=== PATIENT | female | born 1960 | race Caucasian/White ===

== ENCOUNTER → 2020-06-19 16:08 | Outpatient (CLI) | payer BC, SELFPAY ==
--- NOTE | ~2020-06-19 | XR_ITS ---
EXAMINATION: XR chest 2V EXAM DATE: 06/19/2020 16:19 INDICATION: R06.02 - Shortness of breath. TECHNIQUE: Frontal and lateral projections of the chest obtained and reviewed. Comparison is made to prior examination from 07/05/2015. FINDINGS: The lungs are clear. There are no pleural effusions. The cardiomediastinal silhouette is within normal limits. There is no pneumothorax suspected. The bones and soft tissues are unremarkab le. Lower cervical fusion hardware. IMPRESSION: No acute cardiopulmonary findings. Reviewed, dictated and finalized at location A. [employer]
== END ==
PROVIDERS: PCP Family Medicine; Visit Provider Physician Assistant
DX: R06.02 Shortness of breath (principal)
CPT/HCPCS: 71046

== ENCOUNTER 2020-07-16 15:30 | Outpatient (RCR) | payer BC, SELFPAY ==
--- NOTE | 2020-04-20 15:24 | PTOPEVAL ---
PHYSICAL THERAPY EVALUATION AND PLAN OF CARE 04-20-2020 Thank you for referring Michelle Boyd to [facility].? She is scheduled to be seen for therapy? 2-3 x/week for 6 weeks. Please review, sign, date and return this plan of care [place]. I agree with and certify that the following plan of care is medically necessary. Referring Physician Date Attending Provider: Tono Lozano MD *PT Outpatient Evaluation Document 04/20/20 14:10 MEREDITH (Rec: 04/20/20 15:24 MEREDITH [id number]) Outpatient Past Medical History Past Medical History Source of Past Medical History Patient Neurological History Hx Neurological Disorders No Significant History Cardiovascular History Hx Cardiac Disorders No Significant History Respiratory History Hx Respiratory Disorders No Significant History Gastrointestinal History Hx Gastrointestinal Disorders No Significant History Genitourinary History Hx Genitourinary Disorders No Significant History Musculoskeletal History Hx Joint Replacement Yes: R THR 2016 Hx Spinal Surgery Yes: cervical fusion 2001 Hx Other Musculoskeletal Disorders Yes: B carpal tunnel surgery Endocrine History Hx Hypothyroidism Yes HEENT History Hx Other HEENT Disorders Yes: seasonal allergies Evaluation Information Problem Diagnosis s/p B breast reconstruction Onset January 05, 2020 Subjective Information no limitations in activity Query Text:As Reported By Patient/ from dr, per pt Family Prior Level of Function Activity Level (Last 3 Months) Occupation IT work--computer work Hand Dominance Right Activity of Daily Living Ability Independent Indoor/Home Mobility Independent Community Mobility Independent Stairs Ability Independent Functional Cognition (Planning, Shopping Independent , Taking Medications) Cooking Yes Cleaning Yes Laundry Yes Shopping Yes Driving Yes Comments Additional Prior Level of Function problems with reaching up with Comments arms; decreased overall endurance Pain Assessment Timing of Pain Assessment Timing of Pain Assessment Assessment Pain Scale Pain Scale Used Numeric (1 - 10) Self Report Pain Assessment Bilateral Chest Reported Pain Level 0 Pain Description Tightness Pain Frequency Acute Other Pain Description R and L upper trunk with shoulder motions Lowest Pain Intensity 0 Greatest Pain Intensity 3 Pain Score Pain Score
--- NOTE | 2020-05-17 13:34 | PCPTNOTE ---
Patient cancelled apt this date due to waiting for covid test result.
--- NOTE | 2020-05-28 15:40 | PCPTNOTE ---
pt canceled due to still under COVID quarantine and recovering from COVID;
--- NOTE | 2020-06-14 16:04 | PTOPEVAL ---
PHYSICAL THERAPY RE-EVALUATION AND UPDATED PLAN OF CARE 06-14-2020 Refer to the clinical summary below for her improvements since initial evaluation. Therapy is to continue treatment, 2x/week for 6 weeks. Thank you for referring Michelle Boyd to [facility].? Please review, sign, date and return this plan of care [facility]. I agree with and certify that the following plan of care is medically necessary. Referring Physician Date Attending Provider: Tono Lozano MD *PT Outpatient Re-Evaluation Document 06/14/20 15:10 MEREDITH (Rec: 06/14/20 16:03 MEREDITH [id number]) Subjective Information Michelle reports: feeling Query Text:As Reported By Patient/ better but still recovering Family from COVID; doing better- not feel as swollen; doing scar massage daily; still have soreness but less; wearing swell pad and bra; more flexibility with shoulders/ arms; did 20 min on ecclitical at slow pace; want to continue therapy; saw surgeon- was pleased with her progress; plan to do reconstructive surgery in about 6 months; Pain Assessment Timing of Pain Assessment Timing of Pain Assessment Assessment Pain Scale Pain Scale Used Numeric (1 - 10) Self Report Pain Assessment Bilateral Chest Reported Pain Level 2 Radicular Pain Location no shoulder pain; tender and sore over R superior breast necrotic tissue Pain Frequency Chronic Other Pain Description L chest wall tender and sore- muscle under anterior chest wall Lowest Pain Intensity 2 Greatest Pain Intensity 4 Pain Aggravating Factors Exercise/Activity Pain Score Pain Score 2: Self Report Interventions Used Interventions Used By Clinicians Education Upper Extremity Range of Motion General Upper Extremity Range of Motion Gross Upper Extremity Range of Motion standing R shoulder IR- reach Comments behind back-equal to L, fingers to lower scapula; flexion 165'; abduct 165'; ER- reach behind head- elbow equal R/L some pull in abdomen standing trunk: extension- tight over abdomen; rotation to R and L-reports pull on R
--- NOTE | 2020-07-10 16:37 | PTOPEVAL ---
PHYSICAL THERAPY REEVALUATION AND UPDATED PLAN OF CARE 07-10-2020 Refer to the clinical summary below for a comparison to her last reevaluation. PT is to continue 2x/week for 6 weeks; she will be out of town for one week of this time frame. Thank you for referring Michelle Boyd to [facility].? Please review, sign, date and return this plan of care [facility]. I agree with and certify that the following plan of care is medically necessary. Referring Physician Date Attending Provider: Tono Lozano MD Document 07/10/20 15:30 MEREDITH (Rec: 07/10/20 16:37 MEREDITH [id number]) Assessment Status Re-evaluation Subjective Information Michelle reports: have improved Query Text:As Reported By Patient/ with abdominal scar is less; Family endurance has improved with walking; is doing all of her usual home and work tasks, is carrying groceries and cleaning, cooking; want to continue therapy-- it is helping; at home, is doing her massage and exercises; has random swelling over R arm pit and below abdominal incision- - does not know what causes it ; just purchased compression abdominal garment, off the shelf at [facility] and it is comfortable, has worn for 3 days; continues to wear sports type compression bra that is comfortable for her, but sometimes slips up and digs into lower breast incisions; Pain Assessment Timing of Pain Assessment Timing of Pain Assessment Assessment Pain Scale Pain Scale Used Numeric (1 - 10) Self Report Pain Assessment Bilateral Chest Reported Pain Level 3 Pain Frequency Chronic Other Pain Description scar pain- tightness over abdomen, upper trunk, Lowest Pain Intensity 3 Greatest Pain Intensity 5 Pain Aggravating Factors Weight Bearing/Standing Other Pain Aggravating Factors standing more with cooking, holidays; Pain Score Pain Score 3: Self Report Interventions Used Interventions Used By Clinicians Education Pain Relief Interventions Used By Inactivity/Rest,Medication Patient Other Alleviating Interventions tylenol PRN for pain;resting Upper Extremity Range of Motion General Upper Extremity Range of Motion Gross Upper Extremity Range of Motion standing trunk
--- NOTE | 2020-07-11 11:49 | PCPTNOTE ---
pt stated she will be out of town the week of Jul 23;
--- NOTE | 2020-07-18 09:18 | PCPTNOTE ---
This treatment is being continued on visit number [id number]. Please see documentation on both accounts to view progress. Completed interventions, outcomes, and problems have been marked as Inactive to facilitate the copying of the Care plan routine for recurring accounts.
== END 2020-07-18 08:26 | disposition home or self-care (01) ==
LOC: ANHPT 15:30
PROVIDERS: PCP Family Medicine; Visit Provider Plastic Surgery Plastic Surgery Within the Head and Neck
DX: Z48.89 Encounter for other specified surgical aftercare (principal)
CPT/HCPCS: 97110; 97140; 97161

== ENCOUNTER 2020-10-10 15:00 | Outpatient (RCR) | payer BC, SELFPAY ==
--- NOTE | 2020-08-21 16:30 | PTOPEVAL ---
PHYSICAL THERAPY RE-EVALUATION AND UPDATED PLAN OF CARE 08-21-20 Refer to the clinical summary below for her status today, compared to the last reevaluation on 07-10-20. She continues to make improvements and PT is to continue with treatment 1-2x/week for 8 weeks. Thank you for referring Michelle Boyd to [facility].Please review, sign, date and return this updated plan of care [facility]. I agree with and certify that the following plan of care is medically necessary. Referring Physician Date Attending Provider: Tono Lozano MD Document 08/21/20 15:30 MEREDITH (Rec: 08/21/20 16:30 MEREDITH [id number]) Assessment Status Re-evaluation Subjective Information Michelle reports: PT has Query Text:As Reported By Patient/ really helped decrease the Family scarring and able to tolerate wearing bra all day; kinesiotaping is helping; stomach and trunk are not as tight; still have bloating of her stomach, but not as much; is doing exercises and self massage at home, feels PT is really making a difference and wants to continue PT. Pain Assessment Timing of Pain Assessment Timing of Pain Assessment Assessment Pain Scale Pain Scale Used Numeric (1 - 10) Self Report Pain Assessment Lower Abdomen Reported Pain Level 0 Pain Description Burning,Tightness Pain Frequency Chronic,Intermittent Other Pain Description cutting pain; Lowest Pain Intensity 0 Greatest Pain Intensity 4 Additional Pain Comments tape really helps--tightness is less over the scar tissue; Pain Score Pain Score 0: Self Report Additional Pain Score Comments is no longer taking any tylenol for pain Interventions Used Interventions Used By Clinicians Exercise Cervical and Lumbar ROM Lumbar ROM Lumbar Comments standing trunk rotation to R < L and to R- pull on breast scar and to L NO pulling; extension of trunk ~ 10' pulling in lower abdomen, at level of scar; side bending R and L- hand to knees; no pain, stated feels good; supine trunk rotation: R and L reports does not pull in trunk; Lymphedema Evaluation Skin Inspection Location Right Anterior Lower Quadrant, Right Ant
--- NOTE | 2020-10-10 16:06 | PTOPEVAL ---
PHYSICAL THERAPY DISCHARGE 10-10-20 Refer to clinical summary below for her status today, compared to the last reevaluation. The goals were partially achieved. Michelle is independent with her self massage, skin care and self MLD, and has appropriate compression garments. Thank you for referring Michelle Boyd to [facility].? Please review, sign, date and return this discharge [place]. I agree with and certify that the following plan of care is medically necessary. Referring Physician Date Attending Provider: Tono Lozano MD Document 10/10/20 14:30 MEREDITH (Rec: 10/10/20 16:06 MEREDITH [id number]) Assessment Status Discharge Subjective Information Michelle reports: feels like Query Text:As Reported By Patient/ she is ready for discharge Family from therapy; is comfortable with doing all of her home exercises, self massage without any problems; continues to have tightness and pulling, but it is better; feels like her abdomen is bloated today; has not been regularly wearing the compression camisole; Pain Assessment Timing of Pain Assessment Timing of Pain Assessment Assessment Pain Scale Pain Scale Used Numeric (1 - 10) Self Report Pain Assessment Lower Abdomen Reported Pain Level 2 Pain Description Pulling,Tightness Pain Frequency Chronic,Intermittent Other Pain Description rip and tearing pain; R and L horizontal breast scars and abdominal scar Lowest Pain Intensity 0 Greatest Pain Intensity 3 Pain Score Pain Score 2: Self Report Interventions Used Interventions Used By Clinicians Education Cervical and Lumbar ROM Lumbar ROM Lumbar Comments standing trunk: extension increase tightness over abdomen; rotation to R no c/o 's; rotation to L increase breast and trunk tightness; B shoulder active ROM is WNL and without any c/o's; Lymphedema Evaluation Skin Inspection Location Right Anterior Lower Quadrant, Right Anterior Upper Quadrant, Left Breast,Left Anterior Lower Quadrant,Left Anterior Upper Quadrant,Right Breast Skin Observations Hyperpigmentation Tissue Texture Firm Lymphedema Stage
== END 2020-10-11 09:43 | disposition home or self-care (01) ==
LOC: ANHPT 15:00
PROVIDERS: PCP Family Medicine; Visit Provider Plastic Surgery Plastic Surgery Within the Head and Neck
DX: Z48.89 Encounter for other specified surgical aftercare (principal)
CPT/HCPCS: 97110; 97140

== ENCOUNTER 2023-08-08 15:46 | Emergency (ER) | payer BC, SELFPAY ==
[2023-08-08 16:01] VITALS: BP 124/67; PULSE 85; RESP 18; TEMP 36.4; O2SAT 99
[2023-08-08 16:02] VITALS: BP 124/67; PULSE 85; RESP 18; TEMP 36.4; O2SAT 99
--- NOTE | 2023-08-08 16:24 | ED.URI ---
HPI - URI/Sore Throat General Chief Complaint: Upper Respiratory Infection Stated Complaint: sorethroat Time Seen by Provider: 08/08/23 16:13 Source: patient and RN notes reviewed Mode of arrival: ambulatory Limitations: no limitations History of Present Illness HPI Narrative: Patient presents today with a 10 day history of sore throat, postnasal drip, nasal congestion. She started developing some chills and sweats today after a . Currently rates her pain 5/10. She has tried Tylenol, ibuprofen, Mucinex D, and NyQuil without much relief. Related Data Home Medications Medication Instructions Recorded Confirmed aspirin 81 mg tablet,delayed 81 mg PO DAILY 05/06/21 08/08/23 release (Adult Aspirin Regimen) metoprolol succinate 25 mg 12.5 mg PO BID 05/06/21 11/22/22 tablet,extended release 24 hr lisinopril 2.5 mg tablet 2.5 mg PO DAILY 06/12/22 08/08/23 trospium 60 mg capsule,extended mg PO 08/08/23 release 24 hr Allergies Allergy/AdvReac Type Severity Reaction Status Date / Time No Known Allergies Allergy Mild Verified 08/08/23 16:01 Review of Systems Review of Systems: CONSTITUTIONAL: Denies body aches, fever.+ chills, sweats EYES: Denies visual changes, redness, or discharge. ENT: Denies rhinorrhea, or otalgia.+ congestion, postnasal drip, sore throat CARDIOVASCULAR: Denies chest pain, palpitations, or edema. RESPIRATORY: Denies cough or dyspnea. GASTROINTESTINAL: Denies abdominal pain, nausea, vomiting, or diarrhea. GENITOURINARY: Denies dysuria or hematuria. SKIN: Denies rash, itching, or wounds. MUSCULOSKELETAL: Denies back pain, joint pain, or myalgia. NEUROLOGIC: Denies headache, numbness, tingling, or weakness. PSYCH: Denies depression or anxiety. 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 ALEXANDRE (generalized anxiety disorder) ALEXANDRE (generalized anxiety disorder) IFG (impaired fasting glucose) Mild intermittent asthma with exacerbation Mixed hyperlipidemia Mixed hyperlipidemia Murmur, cardiac Neoplasm of uncertain behavior of skin OAB (overactive bladder) Other specified bacterial agents as the cause of diseases classified elsewhere SOB (shortness of breath) Tonsillitis Unspecified asthma, uncomplicated Vitamin D deficiency Weakness Surgical History Surgical History S/P bilateral mastectomy Family History Family History Father Hypertension Family history of arthritis Family history of heart disease in male family member before age 55 ESRF (end stage renal failure) Mother Asthma Skin cancer BCC and SCC Grandparent Carcinoma of colon maternal grandfather Malignant neoplasm of prostate maternal grandfather Other Cerebrovascular accident Diabetes mellitus Family history of gout Social History Social History Social History: Smoking status: Never smoker Second hand tobacco smoke exposure: No Alcohol intake: current Alcohol use details: occasionally Substance use: never Substance use type: does not use Lack of Transportation: No Lack of Food: Never True Current Housing: I Have Housing Concerned About Future Housing: No Difficulty Paying Gas/Electric Bills: No Difficulty Paying for Meds: No Curr
== END 2023-08-08 16:32 | disposition home or self-care (01) ==
PROVIDERS: Emergency Provider Nurse Practitioner; PCP Family Medicine
DX: J06.9 Acute upper respiratory infection, unspecified (principal); E03.9 Hypothyroidism, unspecified; E78.2 Mixed hyperlipidemia; J45.909 Unspecified asthma, uncomplicated; Z79.82 Long term (current) use of aspirin
CPT/HCPCS: 87081; 87880; 99213; G0463

== ENCOUNTER 2024-01-02 11:03 | Emergency (ER) | payer BC, SELFPAY ==
--- NOTE | ~2024-01-02 | XR_ITS ---
EXAMINATION: XR chest 2V DATE: 01/02/2024 11:29 INDICATION: Cough, chest congestion and recent pneumonia. TECHNIQUE: PA and lateral views of the chest were obtained. COMPARISON: Chest radiograph dated 06/19/2020 FINDINGS: 1.3 similar nodular opacity projecting over the lateral right lower lung zone. On the frontal project ion, unable to be identified on the lateral projection. No other airspace opacities, pulmonary edema, pleural effusion or pneumothorax. The cardiomediastinal silhouette is normal. Multiple surgical clip s at the bilateral breasts. Partially visualized plate and screw fixation for lower cervical anterior spinal fusion. Moderate thoracic spondylosis. IMPRESSION: 1. Indeterminate 1.3 cm nodular opacity lateral right lower lung zone. Recommend further evaluation w ith low-dose noncontrast chest CT. Reviewed, dictated and finalized at location A. IMPRESSION: 1. Indeterminate 1.3 cm nodular opacity lateral right lower lung zone. Recommen d further evaluation with low-dose noncontrast chest CT.
--- NOTE | 2024-01-02 11:06 | ED.URI ---
HPI - URI/Sore Throat General Chief Complaint: Upper Respiratory Infection Stated Complaint: upper resp Time Seen by Provider: 01/02/24 11:06 Source: patient Mode of arrival: ambulatory Limitations: no limitations History of Present Illness HPI Narrative: Michelle is a 63-year-old female patient presenting to the clinic today with complaints of nasal congestion, cough, and chest congestion. She reports her symptoms started about 5 days ago. She denies any fever or chills. States she feels as though her cough is productive but is unable to get any phlegm up at this time. Denies any chest pain or shortness of breath. Recently had pneumonia 1 month ago. MD elicited complaint: cough, nasal congestion and other (Chest congestion) Related Data Home Medications Medication Instructions Recorded Confirmed aspirin 81 mg tablet,delayed 81 mg PO DAILY 05/06/21 01/02/24 release (Adult Aspirin Regimen) metoprolol succinate 25 mg 12.5 mg PO BID 05/06/21 01/02/24 tablet,extended release 24 hr lisinopril 2.5 mg tablet 2.5 mg PO DAILY 06/12/22 01/02/24 trospium 60 mg capsule,extended 60 mg PO DAILY 08/08/23 release 24 hr budesonide 160 mcg-glycopyr 9 2 inh inhalation BID 01/02/24 01/02/24 mcg-formot 4.8 mcg/actuation HFA inhaler (Breztri Aerosphere) Allergies Allergy/AdvReac Type Severity Reaction Status Date / Time No Known Allergies Allergy Mild Verified 01/02/24 11:18 Review of Systems Review of Systems: Pertinent positives per HPI. Patient denies any fever, chills, rash, headache, visual changes, dizziness, shortness of breath, chest pain, palpitations, nausea, vomiting, diarrhea, constipation, abdominal pain, or any urinary issues. 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 ALEXANDRE (generalized anxiety disorder) ALEXANDRE (generalized anxiety disorder) IFG (impaired fasting glucose) Mild intermittent asthma with exacerbation Mixed hyperlipidemia Mixed hyperlipidemia Murmur, cardiac Neoplasm of uncertain behavior of skin OAB (overactive bladder) Other specified bacterial agents as the cause of diseases classified elsewhere SOB (shortness of breath) Tonsillitis Unspecified asthma, uncomplicated Vitamin D deficiency Weakness Surgical History Surgical History S/P bilateral mastectomy Family History Family History Father Hypertension Family history of arthritis Family history of heart disease in male family member before age 55 ESRF (end stage renal failure) Mother Asthma Skin cancer BCC and SCC Grandparent Carcinoma of colon maternal grandfather Malignant neoplasm of prostate maternal grandfather Other Cerebrovascular accident Diabetes mellitus Family history of gout Social History Social History Social History: Smoking status: Never smoker Second hand tobacco smoke exposure: No Alcohol intake: current Alcohol use details: occasionally Substance use: never Substance use type: does not use Do You Feel Safe in your Home?: Yes Lack of Transportation: No Lack of Food: Never True Current Housing: I Have Housing Concerned About Future Housing: No Difficulty Paying Gas/Electric Bills: No Difficulty Paying for Meds: No Currently Unemployed: No Education: Dec
[2024-01-02 11:08] VITALS: BP 106/63; PULSE 93; RESP 18; TEMP 36.6; O2SAT 98
[2024-01-02 11:18] VITALS: BP 106/63; PULSE 93; RESP 18; TEMP 36.6; O2SAT 98
== END 2024-01-02 11:55 | disposition home or self-care (01) ==
PROVIDERS: Emergency Provider Nurse Practitioner Family; PCP Family Medicine
DX: J06.9 Acute upper respiratory infection, unspecified (principal); E03.9 Hypothyroidism, unspecified; E78.2 Mixed hyperlipidemia; R01.1 Cardiac murmur, unspecified; Z79.82 Long term (current) use of aspirin
CPT/HCPCS: 71046; 99213; G0463